=== PATIENT | female | born 1975 | race Caucasian/White ===

== ENCOUNTER 2017-03-13 08:29 | Emergency (ER) | payer SELFPAY ==
--- NOTE | 2017-03-13 08:36 | ED Physician Documentation ---
Skin Rash - HISTORIAN Historian: patient - HPI Chief Complaint: Skin Rash Onset: days ago (Sunday) Timing: still present Duration: persistent since (Started on Sunday) Quality: painful, burning Identified Cause?: Yes (Shingles) Context: Medication Exposure: none Context: Food Exposure: none Further Comments: yes (started with rash to the right trunk area with radiation anteriorly. Is starting to blister some. Has had chicken pox in the past.) - ROS CONST: fever (low grade) - PAST HX Past History: other (fibromyalgia) Other History: other (asthma, degenerative disc disease) Surgeries/Procedures: Yes (LEEP) Allergies/Adverse Reactions: Allergies Allergy/AdvReac Type Severity Reaction Status Date / Time Penicillins Allergy Verified 03/13/17 08:46 Home Medications: Ambulatory Orders Medication Instructions Recorded Acyclovir [Zovirax] 800 mg PO DIRECTED #70 tablet 03/13/17 - SOCIAL HX Smoking History: less than 1 pack/day (3/4 ppd) Alcohol Use: none Drug Use: none - FAMILY HX Family History: none - VITAL SIGNS Vital Signs: Vital Signs Temp Pulse Resp BP Pulse Ox 99.3 F 106 H 18 141/94 98 03/13/17 08:29 03/13/17 08:29 03/13/17 08:29 03/13/17 08:29 03/13/17 08:29 - REVIEWED ASSESSMENTS Nursing Assessment Reviewed: Yes Vitals Reviewed: Yes Skin Rash Physical Exam - EXAM General Appearance: no acute distress Skin: warm,dry, other (vesiculated erythematous rash to the right trunk area in band like distribution) Character: asymmetric, vesicular Symptoms: warmth, tenderness Respiratory: no resp distress, chest non-tender, breath sounds normal CVS: reg. rate & rhythm, heart sounds nml Abdomen: non-tender Neuro/Psych: oriented x3, mood/affect nml Discharge Clincal Impression: Shingles Qualifiers: Herpes zoster complications: without complications Qualified Code(s): B02.9 - Zoster without complications Prescriptions: Acyclovir [Zovirax] 800 mg PO DIRECTED #70 tablet Additional Instructions: Take Acyclovir every 4 hours 5 times a day for seven days. If rash begins to weep keep it cover. Watch for secondary infection. Follow-up with your primary care provider. Home Medications: Ambulatory Orders Acyclovir [Zovirax] 800 mg PO DIRECTED #70 tablet 03/13/17 Condition: Stable Disposition: 01 HOME, SELF-CARE Decision to Admit: NO Date of Decison to Admit: 03/13/17 Decision Time: 08:46
[2017-03-13 08:39] VITALS: BP 141/94
== END 2017-03-13 09:05 | disposition home or self-care (01) ==
LOC: ED 08:29
DX: B02.9 Zoster without complications (principal)
CPT/HCPCS: 99283